=== PATIENT | male | born 1995 | race Caucasian/White ===

== ENCOUNTER 2018-09-25 14:51 | Emergency (ER) | payer OTHER ==
[2018-09-25] MEDS ORDERED: ONDANSETRON 4 MG/2 ML VIAL IVP STA (15:13)
[2018-09-25] MEDS ORDERED: SODIUM CHLORIDE 0.9% 1,000 ML IV ONE (15:13)
--- NOTE | 2018-09-25 15:21 | ED Physician Documentation ---
PD HPI NVD - Stated complaint Stated Complaint: DIZZY/NVD/CHILLS - Chief complaint Chief Complaint: Abd Pain - History obtained from History obtained from: Patient - History of Present Illness Timing - onset: Last night Timing - details: Still present Contributing factors: Bad food Similar symptoms before: Has not had sx before - Additonal information Additional information: The patient is an otherwise healthy 22-year-old male who presents with nausea, vomiting, and diarrhea that started last night, shortly after midnight. He has had numerous episodes of vomiting, and his diarrhea is watery. He reports mild periumbilical discomfort and headache. His has had similar symptoms, and they both ate a meal of chicken, broccoli, and rice last night prior to the onset of symptoms. He denies history of similar symptoms in the past. He denies fever, cough, shortness of breath, or dysuria. Review of Systems Constitutional: denies: Fever Ears: denies: Tinnitus/ringing Nose: denies: Congestion Throat: denies: Sore throat Cardiac: denies: Chest pain / pressure Respiratory: denies: Dyspnea, Cough GI: reports: Abdominal Pain (Mild periumbilical discomfort.), Nausea, Vomiting, Diarrhea : denies: Dysuria Skin: denies: Rash Musculoskeletal: denies: Back pain, Extremity pain Neurologic: reports: Headache. denies: Focal weakness, Numbness, Syncope PD PAST MEDICAL HISTORY - Past Medical History Past Medical History: No Respiratory: None Endocrine/Autoimmune: None GI: None - Past Surgical History Past Surgical History: No - Present Medications Home Medications: Ambulatory Orders Medication Instructions Recorded Confirmed Promethazine [Phenergan] 25 mg PO Q6H PRN #10 tab 09/25/18 - Allergies Allergies/Adverse Reactions: Allergies Allergy/AdvReac Type Severity Reaction Status Date / Time No Known Drug Allergies Allergy Verified 09/25/18 15:04 - Social History Does the pt smoke?: No Smoking Status: Never smoker Does the pt drink ETOH?: No PD ED PE NORMAL - Vitals Vital signs reviewed: Yes (Tachycardic) - General General: Alert and oriented X 3, Well developed/nourished - HEENT HEENT: Atraumatic, Pharynx benign, Other (Dry oral mucosa.) - Neck Neck: Supple, no meningeal sign, No adenopathy - Cardiac Cardiac: No murmur, Other (Rapid rate, regular rhythm.) - Respiratory Respiratory: No respiratory distress, Clear bilaterally - Abdomen Abdomen: Soft, Non tender, No organomegaly - Back Back: No CVA TTP - Derm Derm: No rash - Extremities Extremities: No edema, No calf tenderness / cord - Neuro Neuro: Alert and oriented X 3, No motor deficit, No sensory deficit, Normal speech Results - Vitals Vitals: Oxygen O2 Source Room air - Labs Labs: Laboratory Tests 09/25/18 09/25/18 15:22 15:22 WBC 16.6 H RBC 5.57 Hgb 16.5 Hct 48.3 MCV 86.7 MCH 29.7 MCHC 34.2 RDW 12.9 Plt Count 254 MPV 8.8 Neut # (Auto) 15.7 H Lymph # (Auto) 0.3 L Johnston # (Auto) 0.6 Eos # (Auto) 0.0 Baso # (Auto) 0.0 Absolute Nucleated RBC 0.02 Nucleated RBC % 0.1 Sodium 139 Potassium 3.7 Chloride 99 L Carbon Dioxide 26 Anion Gap 14.0 H BUN 16 Creatinine 1.0 Estimated GFR (MDRD) 92 Glucose 122 H Calcium 9.3 Total Bilirubin 2.6 H AST 32 ALT 34 Alkaline Phosphatase 71 Total Protein 8.7 H Albumin 4.8 Globulin 3.9 Albumin/Globulin Ratio 1.2 Lipase 22 PD MEDICAL DECISION MAKING - ED course Complexity details: reviewed results, re-evaluated patient, considered differential, d/w patient, d/w family ED course: The patient's presentation is most consistent with food poisoning, based on history of temporal relationship to meal that both he and his ate, and both subsequently became ill with similar symptoms. Gastroenteritis is a consideration, but is less likely. His presentation does not suggest pancreatitis, peritonitis, or bowel obstruction. Treatment in the emergency department included administration of normal saline 1 L IV, and ondansetron 4 mg IV. He felt subjectively improved with this treatment, and demonstrated ability to drink fluids without recurrent vomiting. He is being discharged with prescription for Phenergan. I discussed with him and his the diagnosis, symptomatic treatment and outpatient follow-up, as well as potentially worrisome signs or symptoms that should prompt reevaluation in the emergency department. Departure - Departure Disposition: 01 Home, Self Care Clinical Impression: Dehydration Food poisoning Qualifiers: Encounter type: initial encounter Injury intent: accidental or unintentional Qualified Code(s): T62.91XA - Toxic effect of unspecified noxious substance eaten as food, accidental (unintentional), initial encounter Condition: Stable Instructions: ED Gastroenteritis Vs Food Poison Follow-Up: KYLAH BAUTISTA MD [Primary Care Provider] - Prescriptions: Promethazine [Phenergan] 25 mg PO Q6H PRN #10 tab PRN Reason: Nausea / Vomiting Comments: Drink plenty of fluids. You can use Phenergan as prescribed if needed for nausea. Follow-up with your primary physician within 1 week if not completely resolved. Return to the emergency department if you develop increasing abdominal pain, persistent vomiting or diarrhea, recurrent dehydration, or otherwise worsening symptoms. Discharge Date/Time: 09/25/18 16:45
[2018-09-25 15:36] LABS: BASOPHILS % (AUTO) 0.2 %; EOSINOPHILS % (AUTO) 0.2 %; HGB - HEMOGLOBIN 16.5 g/dL (14.0-18.0); LYMPHOCYTES # (AUTO) 0.3 10^3/uL (1.5-3.5); LYMPHOCYTES % (AUTO) 1.6 %; MEAN CORPUSCULAR HEMOGLOBIN 29.7 pg (27.0-31.0); MEAN CORPUSCULAR HGB CONC 34.2 g/dL (32.0-36.0); MEAN CORPUSCULAR VOLUME 86.7 fL (80.0-94.0); MEAN PLATELET VOLUME 8.8 fL (7.4-11.4); MONOCYTES # (AUTO) 0.6 10^3/uL (0.0-1.0); MONOCYTES % (AUTO) 3.5 %; NEUTROPHILS # (AUTO) 15.7 10^3/uL (1.5-6.6); NEUTROPHILS % (AUTO) 94.5 %; PLT - PLATELET COUNT 254 10^3/uL (130-450); RED BLOOD COUNT 5.57 10^6/uL (4.70-6.10); RED CELL DISTRIBUTION WIDTH 12.9 % (12.0-15.0); WHITE BLOOD COUNT 16.6 x10^3/uL (4.8-10.8)
[2018-09-25 15:52] LABS: ALBUMIN 4.8 g/dL (3.2-5.5); ALBUMIN/GLOBULIN RATIO 1.2 (1.0-2.2); BILIRUBIN,TOTAL 2.6 mg/dL (0.2-1.0); CALCIUM 9.3 mg/dL (8.5-10.3); TOTAL PROTEIN 8.7 g/dL (6.7-8.2)
[2018-09-25 16:39] VITALS: BP 117/74
== END 2018-09-25 16:45 | disposition home or self-care (01) ==
LOC: ED 14:51
DX: E86.0 Dehydration (principal); T62.91XA Toxic effect of unspecified noxious substance eaten as food, accidental (unintentional), initial encounter
CPT/HCPCS: 36415; 80053; 83690; 85025; 96361; 96374; 99283